=== PATIENT | male | born 1965 | race Caucasian/White ===

== ENCOUNTER 2019-03-19 12:58 | Emergency (ER) | payer OTHER ==
[~2019-03-19] VITALS: Ht 167.6 cm; Wt 80.0 kg
--- NOTE | 2019-03-19 13:25 | NUR ---
BIB BY MARILIA AFTER GIRLFRIEND CALLED PICK UP ATTENDANT OFFICE HE MADE COMMENTS ABOUT ATTEMPTING TO HARM HIMSELF REPORTS HX OF DEPRESSION/ADMITS TO DRINKING THIS AM (EMS BREATHALZER 0.19) ON ARRIVAL DENYING SI/HI. 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
--- NOTE | 2019-03-19 13:32 | NUR ---
VOCATIONAL EDUCATION TEACHER ABLE TO OBTAIN WEIGHT/TEMP. PATIENT REFUSING BP CUFF/POX. VOCATIONAL EDUCATION TEACHER LEFT THE ROOM TO ALLOW PROVIDER TO COMPLETE ASSESSMENT AT 1330. WHEN VOCATIONAL EDUCATION TEACHER RETURNED TO ROOM AT 1333 PATIENT NOT IN ROOM. VOCATIONAL EDUCATION TEACHER LOOKED THROUGHOUT ENTIRE ER INCLUDING RESTROOMS AND LOBBY. PATIENT NOWHERE TO BE FOUND PROVIDER/MILITARY NURSE MADE AWARE
--- NOTE | 2019-03-19 13:34 | NUR ---
TO AVOID CALLING SECURITY PATIENT DID NOT HAVE AN PIV/WAS DENYING SI-WHICH MODEL BUILDER BELIVED TO BE TRUE
--- NOTE | 2019-03-19 13:56 | NUR ---
PATIENT STILL UNABLE TO BE LOCATED. DISCHARGED OUT OF COMPUTER
== END 2019-03-19 13:57 | disposition home or self-care (01) ==
LOC: ED 13:51
DX: F33.0 Major depressive disorder, recurrent, mild (principal); F10.129 Alcohol abuse with intoxication, unspecified; F41.9 Anxiety disorder, unspecified
CPT/HCPCS: 99284